=== PATIENT | male | born 1945 | race Caucasian/White ===

== ENCOUNTER 2018-09-02 13:44 | Outpatient (CLI) | payer OTHER | END 2018-09-02 13:45 | disposition home or self-care (01) | LOC: SC 13:44 | PROVIDERS: ATTEND Internal Medicine Pulmonary Disease | DX: G47.33 Obstructive sleep apnea (adult) (pediatric) (principal); E66.01 Morbid (severe) obesity due to excess calories; Z68.41 Body mass index [BMI] 40.0-44.9, adult | CPT/HCPCS: 99203; 99212 ==

== ENCOUNTER 2018-09-25 20:30 | Outpatient (CLI) | payer OTHER | END 2018-09-25 20:31 | disposition home or self-care (01) | LOC: SC 20:30 | PROVIDERS: ATTEND Internal Medicine Pulmonary Disease | DX: G47.33 Obstructive sleep apnea (adult) (pediatric) (principal) | CPT/HCPCS: 95810 ==

== ENCOUNTER 2018-10-09 08:16 | Outpatient (CLI) | payer OTHER | END 2018-10-09 08:17 | disposition home or self-care (01) | LOC: SC 08:16 | PROVIDERS: ATTEND Nurse Practitioner Family | DX: G47.33 Obstructive sleep apnea (adult) (pediatric) (principal); I49.9 Cardiac arrhythmia, unspecified | CPT/HCPCS: 99212; 99214 ==

== ENCOUNTER 2022-05-04 14:19 | Outpatient (CLI) | payer OTHER ==
--- NOTE | 2022-05-04 15:20 | SLEEP CARE CONSULTATION ---
Information from patient questionnaire entered by Merle Lira MA. I have reviewed and concur with the information entered by Merle Lira MA. This document represents the service I personally performed and the decisions made by me, Susanna Denney ARNP. History of Present Illness Service Date and Time: 05/04/2022 1419 Reason for Visit: New patient, sleep apnea on CPAP therapy Chief Complaint: reports: Unrefreshed sleep, Excessive daytime sleepiness, Fatigue, Other (update supplies) Date of Onset: 2018 Usual bedtime: 11 TO 1AM Time it takes to fall asleep: 20 MIN Snores at night: No Observed to quit breathing while asleep: Yes Sleeps alone due to snoring: No Number of times waking at night: NONE Reasons for waking at night: reports: Bathroom Toss, Turn, or Twitch while sleeping: No Recalls having dreams: No Usually gets out of bed at: 6:30 TO 7:00 Feels refreshed in the morning: No Morning headache: No Sleepy or fatigued during the day: Yes Ever fallen asleep while driving: No Takes day naps: Yes Dreams during day naps: No Prior sleep studies: Yes Year and Where: [facility], [place] Type of Sleep Study: Home sleep study Additional HPI information: SUPA RODRIGUEZ was previously diagnosed to have severe, AHI 54.6, obstructive sleep apnea-hypopnea syndrome and comes in today to establish care for CPAP the [facility]. He states the [facility] has sent him back here because he needs a sleep study. He was on nocturnal oxygen through [facility]AP but [facility]. He has not been sleeping as well or feeling as rested since they stopped the oxygen at night. - Parasomnia Symptoms Ever been unable to move upon waking from sleep: No Walks in sleep: No Talks in sleep: No Ever acted out dreams in sleep: No Ever felt weak in the knees when startled or emotional: No Bothered by creepy, crawly, restless sensations in legs: Yes Problems with memory or concentration: Yes CPAP Compliance Data Compliance data discussion: [facility] He has an [employer] Airsense 10. He is using a full face hybrid mask. He does not feel it is comfortable. He does h ave a back up mask if needed. Subjective Patient concerns: reports: mask discomfort (he does not like the full face mask, but is using it), dry mouth, nose, throat (dry mouth, but this last all the day long). denies: aerophagia, air blowing in eyes, mask leak noise, condensation in mask/hose, nasal congestion, epistaxis Observed to snore while using device: No Current pressure setting perceived as: comfortable On therapy, patient: reports: sleeping better, awakening more refreshed, being more awake and alert during the day, more rested overall. denies: drowsiness while driving Initial [place] Sleepiness Scale score: 19 (2018) Current [place] Sleepiness Scale score: 15 (04/2022) Past Medical History Past Medical History: reports: Hypertension, Congestive Heart Failure, Diabetes, Arthritis Social History The patient's occupation is a RE. Patient is and lives in [place]. Have you smoked in the past 12 months: No Cigarettes per day (20/pack): 20 Years of smokin Quit date: 1988 Smoking Pack Years: 25.0 Alcohol use: No Caffeine use: No Family History Family history of sleep disordered breathing: Yes Family Hx Sleep Apnea: Other: Snoring (CHILD) Allergies and Home Medications Drug allergies reviewed: Yes Home medication list reviewed: Yes Review of Systems Cardiovascular: reports: high blood pressure, palpitations, chest pain, leg or foot swelling Respiratory: reports: shortness of breath, wheeze, sputum production, chronic cough Gastrointestinal: reports: difficulty swallowing Neurological: denies: headaches Psychiatric: denies: anxiety, depression Ear/Nose/Throat: reports: dry mouth/throat, hoarseness, tonsillectomy, wisdom teeth removed Endocrine: reports: sluggishness, too hot or cold, excessive thirst Musculoskeletal: reports: joint pain, neck pain, back pain, muscle pain or cramping Immunologic: reports: itching Physical Exam Vital signs obtained and entered by: MERLE Faye Blood Pressure: 140/88 Heart Rate: 86 O2 Saturation: 94 Height: 5 ft 5 in Weight: 266 lb 9.6 oz Body Mass Index: 44.4 BMI Classification: Morbidly Obese Neck circumference: 20 Heart: irregular rhythm Lungs: wheeze Impression and Plan 1. Obstructive Sleep Apnea-Hypopnea Syndrome, severe, with unknown treatment compliance and unknown apnea control. On CPAP therapy, the patient has better sleep quality and is more rested overall. The [employer] website is not allowing us to download his data from the [employer] card. We were unable to retrieve his therapy and compliance data. Patient needs a new sleep study with him on the CPAP so that we can see how his oxygen level responds during the night. I will order a sleep study to evaluate both. I will follow-up with him in the office once it is completed. Patient's apnea severity and rationale for treatment to reduce apnea, improve sleep quality and reduce cardiovascular and cerebrovascular events was reviewed. I also reviewed the benefit of consistent device use of CPAP for hypertension, CHF, gastric reflux and migraines. 2. Obesity, unspecified. Currently patients BMI is 44.4. Obesity increases the risk of apnea, CPAP pressure requirements and overall health risks especially cardiovascular and diabetes. Thus patient is advised to lose weight. * Continue auto CPAP pressure at 12-16 cmH2O * Polysomnography/HST on CPAP to evaluate oxygen saturation while on CPAP * Notify me if snoring with mask or feeling that the pressure is too much or too little * Attempt to lose weight * Call this office if any problems using CPAP * Return for follow up after sleep study completed, or sooner if concerns arise Counseling Topics: Spare mask, Weight loss health impact Visit Type: In Office Time Spent with Patient (minutes): 36 Provider Statement: I spent 100% of the Face to Face Visit with the patient with greater than 50% spent counseling the patient and coordination of care.
[2022-05-04 15:21] VITALS: BP 140/88
== END 2022-05-04 14:20 | disposition home or self-care (01) ==
LOC: SC 14:19
PROVIDERS: ATTEND Nurse Practitioner Family
DX: G47.33 Obstructive sleep apnea (adult) (pediatric) (principal); E66.01 Morbid (severe) obesity due to excess calories; Z68.41 Body mass index [BMI] 40.0-44.9, adult; Z87.891 Personal history of nicotine dependence
CPT/HCPCS: 99203; 99212